=== PATIENT | female | born 1950 | race Two or more races ===

== ENCOUNTER 2021-04-03 10:47 | Emergency (ER) | payer OTHER, MEDICAID | END 2021-04-03 13:08 | disposition left against medical advice (07) | LOC: ER 10:47 | DX: M79.10 Myalgia, unspecified site (principal); Z53.21 Procedure and treatment not carried out due to patient leaving prior to being seen by health care provider; W19.XXXA Unspecified fall, initial encounter; Y93.89 Activity, other specified; Y92.89 Other specified places as the place of occurrence of the external cause; Y99.8 Other external cause status ==

== ENCOUNTER 2024-05-04 10:21 | Emergency (ER) | payer OTHER, MEDICAID ==
[~2024-05-04] VITALS: Ht 157.5 cm; Wt 61.4 kg
--- NOTE | 2024-05-04 10:34 | ECG ---
[facility] Test Date: 2024-05-04 Test Time: 10:31:10 Pat Name: MEENAKSHI JESSICA Department: ER Room: Gender: F Home Health Physical Therapist: JOLENE : 1950 Requested By: RENETTA ORDONEZ Order Number: [id number] Reading MD: Neal Ray Measurements Intervals [place] Rate: 67 P: 66 GA: 183 QRS: -52 QRSD: 99 T: -60 QT: 529 QTc: 559 Interpretive Statements Sinus rhythm Probable left atrial enlargement Left anterior fascicular block Left ventricular hypertrophy Anterior Q waves, possibly due to LVH Abnormal T, consider ischemia, diffuse leads Prolonged QT interval Electronically Signed On 05-05-2024 16:07:38 PST by Neal Ray Please click the below link to view image of tracing.
[2024-05-04 10:50] LABS: Basophils # (auto) 0 10 ^3/uL (0-0.2); Basophils % (auto) 0.8 % (0.0-2.0); Eosinophils # (auto) 0.1 10 ^3/uL (0-0.8); Hematocrit 42.3 % (36.0-46.0); Hemoglobin 14.3 g/dL (12.2-16.2); Lymphocytes # (auto) 1.4 10 ^3/uL (0.4-5.4); Lymphocytes % (auto) 29.4 % (10.0-50.0); Mean Corpuscular Hemoglobin 32.8 pg (28.0-32.0); Mean Corpuscular Hgb Conc. 33.8 g/dL (32.0-36.0); Mean Corpuscular Volume 97.1 fL (80.0-100.0); Monocytes # (auto) 0.4 10 ^3/uL (0-1.3); Monocytes % (auto) 8.9 % (0.0-12.0); Neutrophils # (auto) 2.9 10 ^3/uL (1.6-8.6); Neutrophils % (auto) 58.9 % (37.0-80.0); Nucleated Red Blood Cells % 0.1 %; Platelet Count (auto) 127 10^3/uL (140-450); Red Blood Cells 4.36 10^6/uL (4.0-5.20); Red Cell Distribution Width 14.3 % (11.8-14.3); White Blood Cell 4.9 10^3/uL (4.4-10.8)
--- NOTE | 2024-05-04 10:53 | DVH ---
CHEST RADIOGRAPH Indication: CHEST PAIN Technique: Single frontal view of the chest was obtained COMPARISON: None FINDINGS: No pulmonary edema, pneumothorax, or consolidative infiltrates. There is mild elevation of the right hemidiaphragm. The heart is not enlarged. That aortico arch is calcific. There are surgical clips in the right upper quadrant consistent with prior cholecystectomy. IMPRESSION: 1. No acute intrathoracic process.
--- NOTE | 2024-05-04 11:07 | ED.PDOC ---
History of Present Illness HPI Comments 74 y/o F, with a Hx of HTN and tobacco use, presents with c/o HTN and chest pain, today. Patient endorses on noticing her blood pressure being elevated for the past 4x days after starting a new HTN medication she was placed on, recently, with additional and unprovoked onset of pain 2x days ago. She comments on pain being localized underneath her left breast and it being constant since onset. She denies any shortness of breath, dizziness, nausea, vomiting, fever, chills, or other associated symptoms or modifiers at this time. Chief Complaint: Chest Pain Time Seen by MD: 10:45 Primary Care Provider: CHERISE Reviewed Notes: Nurses Notes, Medications, Allergies Allergies: Coded Allergies: Ibuprofen (Verified Allergy, Unknown, 05/04/24) Prochlorperazine (Verified Allergy, Unknown, 05/04/24) Information Source: Patient Mode of Arrival: Ambulatory Severity: Moderate Timing: Days Duration: Since onset Prehospital treatment: None Past Medical History PAST MEDICAL HISTORY: HTN Surgical History: Denies all surgeries HIGH SPEED WARPER TENDER History: Denies all HIGH SPEED WARPER TENDER Hx Family History Family History: Unknown Social History Smoker: Cigarettes Alcohol: Denies ETOH Use Drugs: Denies Drug Use Lives In: Home Cardiovascular: reports: chest pain Hematologic/Lymphatic: reports: others (HTN) All Other Systems: Reviewed and Negative (negative unless otherwise stated above or in HPI) Physical Exam General Appearance: No Apparent Distress, Normal HEENT: Normal ENT Inspection, Pharynx Normal, TMs Normal Neck: Full Range of Motion, Non-Tender, Normal, Normal Inspection Respiratory: Chest Non-Tender, Lungs Clear, No Accessory Muscle Use, No Respiratory Distress, Normal Breath Sounds Cardiovascular: No Edema, No JVD, No Murmur, No Gallop, Normal Peripheral Pulses, Regular Rate/Rhythm Breast Exam: Deferred Gastrointestinal: No Organomegaly, Non Tender, No Pulsatile Mass, Normal Bowel Sounds, Soft Genitalia: Deferred Pelvic: Deferred Rectal: Deferred Extremities: No calf tenderness, Normal capillary refill, Normal inspection, Normal range of motion, Non-tender, No pedal edema Musculoskeletal : Apperance: Normal Neurologic: Alert, seed cleaning manager II-XII nml as Tested, No Motor Deficits, Normal Affect, Normal Mood, No Sensory Deficits Cerebellar Function: Normal Reflexes: Normal Skin: Dry, Normal Color, Warm Lymphatic: No Adenopathy, NOT DONE Was a procedure done? Was a procedure done?: No EKG EKG : Pulse Rate (adult): 67 [place]: Normal Cardiac Rhythm: NSR Block: None Hypertrophy: LVH ST: Normal Comments left anterior fascicular block Differential Dx Considerations may include: SD, ACS, PE, PNA, costochondritis, pericarditis, gastritis, gastroenteritis, viral syndrome, musculoskeletal pain, anxiety, angina X-Ray, Labs, Meds, VS Vital Signs Date Time Temp Pulse Resp B/P (MAP) Pulse Ox O2 Delivery O2 Flow Rate FiO2 05/04/24 11:38 63 05/04/24 11:07 67 05/04/24 10:35 97.9 65 18 179/90 (119) 96 05/04/24 10:31 67 Lab Test 05/04/24 11:33 05/04/24 10:34 Range/Units Troponin I High Sensitivity Pending 4 </=34 ng/L White Blood Count 4.9 4.4-10.8 10^3/uL Red Blood Count 4.36 4.0-5.20 10^6/uL Hemoglobin 14.3 12.2-16.2 g/dL Hematocrit 42.3 36.0-46.0 % Mean Corpuscular Volume 97.1 80.0-100.0 fL Mean Corpuscular Hemoglobin 32.8 H 28.0-32.0 pg Mean Corpuscular Hemoglobin Concent 33.8 32.0-36.0 g/dL Red Cell Distribution Width 14.3 11.8-14.3 % Platelet Count 127 L 140-450 10^3/uL Mean Platelet Volume 8.8 6.9-10.8 fL Neutrophils (%) (Auto) 58.9 37.0-80.0 % Lymphocytes (%) (Auto) 29.4 10.0-50.0 % Monocytes (%) (Auto) 8.9 0.0-12.0 % Eosinophils (%) (Auto) 2.0 0.0-7.0 % Basophils (%) (Auto) 0.8 0.0-2.0 % Neutrophils # (Auto) 2.9 1.6-8.6 10 ^3/uL Lymphocytes # (Auto) 1.4 0.4-5.4 10 ^3/uL Monocytes # (Auto) 0.4 0-1.3 10 ^3/uL Eosinophils # (Auto) 0.1 0-0.8 10 ^3/uL Basophils # (Auto) 0 0-0.2 10 ^3/uL Nucleated Red Blood Cells 0.1 % Sodium Level 137 136-145 mmol/L Potassium Level 4.1 3.5-5.1 mmol/L Chloride Level 105 98-107 mmol/L Carbon Dioxide Level 27 20-31 mmol/L Anion Gap 5 5-15 Blood Urea Nitrogen 12 9-23 mg/dL Creatinine 0.76 0.550-1.02 mg/dL Glomerular Filtration Rate Calc 82 >90 mL/min BUN/Creatinine Ratio 15.8 10.0-20.0 Serum Glucose 108 H 74-106 mg/dL Calcium Level 10.1 8.7-10.4 mg/dL Total Bilirubin 0.4 0.2-1.0 mg/dL Aspartate Amino Transferase (AST) 20 13-40 U/L Alanine Aminotransferase (ALT) < 9 7-40 U/L Alkaline Phosphatase 94 46-116 U/L Total Protein 7.3 5.7-8.2 g/dL Albumin 4.6 3.2-4.8 g/dL [place] [id number] Ph: [phone] DIAGNOSTIC IMAGING Diagnostic Imaging Report : [id number] Signed PATIENT: MEENAKSHI LOPEZ ACCT: [id number] UNIT: [id number] : 1950 LOC: ER ROOM / BED: / AGE / SEX: 74 / F ADM STATUS: REG ER SERVICE [id number] ORDERING PHYSICIAN: RENETTA ORDONEZ MD PROCEDURE(s): CXRP - CHEST PORTABLE REASON: CHEST PAIN ORDER NUMBER(s): [id number], ACCESSION NUMBER(s): [id number] CHEST RADIOGRAPH Indication: CHEST PAIN Technique: Single frontal view of the chest was obtained COMPARISON: None FINDINGS: No pulmonary edema, pneumothorax, or consolidative infiltrates. There is mild elevation of the right hemidiaphragm. The heart is not enlarged. That aortico ar ch is calcific. There are surgical clips in the right upper quadrant consistent with prior cholecystectomy. IMPRESSION: 1. No acute intrathoracic process. ATED BY: TIFFANY BOWLES MD DICTATED DATE/TIME: 05/04/24 105 SIGNED BY: TIFFANY BOWLES MD SIGNED DATE/TIME: 05/04/24 105 CC: X-Ray, Labs, Meds, VS Comment This 74 year old female presents secondary to chest pain. She had multiple risk factors including history of tobacco dependence and hypertension. She had nonspecific changes to her EKG concerning for possible underlying ischemia. His heart score 4. Based on history, physical exam, heart score in clinical condition, believe the patient should be worked up to assess for acute coronary syndrome. Time of 1ST Reevaluation: 11:15 Reevaluation 1ST: Unchanged Patient Education/Counseling: Diagnosis, Treatment Family Education/Counseling: No Family Present Departure 1 Departure Time of Disposition: 12:00 Impression: Primary Impression: Chest pain Additional Impression: Angina pectoris Disposition: ADMITTED INPATIENT Admit to: [facility] Condition: Serious Critical Care Note Critical Care Time?: No Stability Stability form required: No Heart Score Heart Score: Heart Score Response (Comments) Value History Moderate Suspicious 1 EKG Normal 0 Age >65 2 Risk Factors 1 or 2 risk factors 1 Troponin Normal limit 0 Total 4 I personally scribed for RENETTA ORDONEZ MD ([email or web address]) on 05/04/24 at 11:07. Electronically submitted by Tong Martinez ([email or web address]). I personally scribed for RENETTA ORDONEZ MD ([email or web address]) on 05/04/24 at 11:08. Electronically submitted by Tong Martinez [email or web address]). RENETTA ORDONEZ MD May 04, 2024 11:07
[2024-05-04 11:10] LABS: Alanine Aminotransferase < 9 U/L (7-40); Albumin 4.6 g/dL (3.2-4.8); Alkaline Phosphatase 94 U/L (46-116); Anion Gap 5 (5-15); Aspartate Aminotransferase 20 U/L (13-40); BUN/Creatinine Ratio 15.8 (10.0-20.0); Bilirubin, Total 0.4 mg/dL (0.2-1.0); Blood Urea Nitrogen 12 mg/dL (9-23); Calcium 10.1 mg/dL (8.7-10.4); Carbon Dioxide 27 mmol/L (20-31); Chloride 105 mmol/L (98-107); Glucose 108 mg/dL (74-106); Potassium 4.1 mmol/L (3.5-5.1); Sodium 137 mmol/L (136-145); Total Protein 7.3 g/dL (5.7-8.2)
[2024-05-04 12:24] LABS: Urine Bacteria None Seen /hpf (None Seen)
[2024-05-04 13:00] VITALS: PULSE 63; RESP 18; O2SAT 96
[2024-05-04 13:02] LABS: Urine Blood Negative /uL (Negative); Urine Clarity Clear (Clear); Urine Color Yellow (Yellow); Urine Mucus FEW (None Seen); Urine Protein, UAD Negative (Negative); Urine Specific Gravity 1.029 (1.001-1.035); Urine Sperm PRESENT /hpf (None Seen); Urine Squamous Epithelial Cell FEW /hpf (<5); Urine Urobilinogen Normal (Negative); Urine WBC 1 /hpf (0 - 5); Urine pH 6.5 (5.0-9.0)
[2024-05-04] MEDS: hydrALAZINE HCL 10 MG TAB PO ONE (13:36)
[2024-05-04 15:14] VITALS: BP 170/88; PULSE 63; RESP 16; TEMP 97.7; O2SAT 95
--- NOTE | 2024-05-04 16:34 | DVHINCON2 ---
Date Seen: May 04, 2024 Referring Physician ER physician. Reason for Consultation Chest pain and uncontrolled hypertension History of Present Illness 74-year-old female with a known history of hypertension initially presented to hospital with chest pain and high blood pressure. Patient has stated that her blood pressure is high for last four five days. She was recently started on new medication which she does not know the name. Patient's troponins were negative. Past Medical History Hypertension Past Surgical History Patient denies any surgical history. Social History Tobacco use disorder. Allergies: Coded Allergies: Ibuprofen (Verified Allergy, Unknown, 05/04/24) Prochlorperazine (Verified Allergy, Unknown, 05/04/24) Vital Signs Vital Signs Date Time Temp Pulse Resp B/P (MAP) Pulse Ox O2 Delivery O2 Flow Rate FiO2 05/04/24 15:14 97.7 63 16 170/88 (115) 95 97.7 05/04/24 13:38 Room Air 05/04/24 13:00 0 21 Labs/Diagnostic Data Labs Test 05/04/24 13:22 05/04/24 11:40 05/04/24 10:34 Range/Units Troponin I High Sensitivity 4 </=34 ng/L Urine Color Yellow Yellow Urine Clarity Clear Clear Urine pH 6.5 5.0-9.0 Urine Specific [place] 1.029 1.001-1.035 Urine Protein Negative Negative Urine Ketones Negative Negative Urine Blood Negative Negative /uL Urine Nitrite Negative Negative Urine Bilirubin Negative Negative Urine Urobilinogen Normal Negative mg/dL Urine Leukocyte Esterase Negative Negative /uL Urine RBC 1 0 - 4 /hpf Urine WBC 1 0 - 5 /hpf Urine Squamous Epithelial Cells Few <5 /hpf Urine Bacteria None seen None Seen /hpf Urine Mucus Few None Seen Urine Sperm Present None Seen /hpf Urine Glucose Normal Normal mg/dL White Blood Count 4.9 4.4-10.8 10^3/uL Red Blood Count 4.36 4.0-5.20 10^6/uL Hemoglobin 14.3 12.2-16.2 g/dL Hematocrit 42.3 36.0-46.0 % Mean Corpuscular Volume 97.1 80.0-100.0 fL Mean Corpuscular Hemoglobin 32.8 H 28.0-32.0 pg Mean Corpuscular Hemoglobin Concent 33.8 32.0-36.0 g/dL Red Cell Distribution Width 14.3 11.8-14.3 % Platelet Count 127 L 140-450 10^3/uL Mean Platelet Volume 8.8 6.9-10.8 fL Neutrophils (%) (Auto) 58.9 37.0-80.0 % Lymphocytes (%) (Auto) 29.4 10.0-50.0 % Monocytes (%) (Auto) 8.9 0.0-12.0 % Eosinophils (%) (Auto) 2.0 0.0-7.0 % Basophils (%) (Auto) 0.8 0.0-2.0 % Neutrophils # (Auto) 2.9 1.6-8.6 10 ^3/uL Lymphocytes # (Auto) 1.4 0.4-5.4 10 ^3/uL Monocytes # (Auto) 0.4 0-1.3 10 ^3/uL Eosinophils # (Auto) 0.1 0-0.8 10 ^3/uL Basophils # (Auto) 0 0-0.2 10 ^3/uL Nucleated Red Blood Cells 0.1 % Sodium Level 137 136-145 mmol/L Potassium Level 4.1 3.5-5.1 mmol/L Chloride Level 105 98-107 mmol/L Carbon Dioxide Level 27 20-31 mmol/L Anion Gap 5 5-15 Blood Urea Nitrogen 12 9-23 mg/dL Creatinine 0.76 0.550-1.02 mg/dL Glomerular Filtration Rate Calc 82 >90 mL/min BUN/Creatinine Ratio 15.8 10.0-20.0 Serum Glucose 108 H 74-106 mg/dL Calcium Level 10.1 8.7-10.4 mg/dL Total Bilirubin 0.4 0.2-1.0 mg/dL Aspartate Amino Transferase (AST) 20 13-40 U/L Alanine Aminotransferase (ALT) < 9 7-40 U/L Alkaline Phosphatase 94 46-116 U/L Total Protein 7.3 5.7-8.2 g/dL Albumin 4.6 3.2-4.8 g/dL Assessment 74-year-old female with a known history of hypertension presented to the hospital with chest pain and I have uncontrolled hypertension 1. Chest pain rule out [place] 2. Uncontrolled hypertension 3. Chronic tobacco use disorder -tele observation, 2D echo cardiology consultation. Plan discussed with: Other Date of Service: May 04, 2024 Billing Provider: LISA WEBB MD Common Visit Codes: NOT BILLABLE LISA WEBB MD May 04, 2024 16:34
--- NOTE | 2024-05-06 09:50 | ECG ---
[facility] Test Date: 2024-05-04 Test Time: 11:38:55 Pat Name: MEENAKSHI JESSICA Department: ER Room: Gender: F Tent Assembler: ÁNGEL : 1950 Requested By: RENETTA ORDONEZ Order Number: [id number] Reading MD: Neal Ray Measurements Intervals [place] Rate: 63 P: 54 [place]: 186 QRS: -55 QRSD: 99 T: -37 QT: 409 QTc: 419 Interpretive Statements Sinus rhythm Left anterior fascicular block Abnormal R-wave progression, late transition Left ventricular hypertrophy Nonspecific T abnormalities, diffuse leads Electronically Signed On 05-09-2024 15:03:20 PST by Neal Ray Please click the below link to view image of tracing.
--- NOTE | 2024-05-06 15:23 | ECG ---
[facility] Test Date: 2024-05-04 Test Time: 13:11:38 Pat Name: MEENAKSHI JESSICA Department: ER Room: Gender: F Banking Attorney: ÁNGEL : 1950 Requested By: RENETTA ORDONEZ Order Number: [id number] Reading MD: Neal Ray Measurements Intervals [place] Rate: 58 P: 68 MD: 192 QRS: -53 QRSD: 100 T: -49 QT: 545 QTc: 536 Interpretive Statements Sinus rhythm LAD, consider left anterior fascicular block Left ventricular hypertrophy Nonspecific T abnormalities, diffuse leads Prolonged QT interval Electronically Signed On 05-09-2024 15:03:24 PST by Neal Ray Please click the below link to view image of tracing.
== END 2024-05-04 16:04 | disposition left against medical advice (07) ==
LOC: ER 10:21
DX: I20.9 Angina pectoris, unspecified (principal); R07.89 Other chest pain; I10 Essential (primary) hypertension; F17.210 Nicotine dependence, cigarettes, uncomplicated; Z88.6 Allergy status to analgesic agent
CPT/HCPCS: 36415; 71045; 80053; 81001; 84484; 85025; 93005